=== PATIENT | female | born 1975 | race Caucasian/White ===

== ENCOUNTER 2022-02-10 18:27 | Emergency (ER) | payer OTHER ==
[~2022-02-10] VITALS: Ht 165.1 cm; Wt 102.1 kg
[~2022-02-10 18:27] MED LIST: ALBUTEROL SULF8.5 GM INH; ATIVAN1 MG PO; CEPHALEXIN500 MG PO; CYCLOBENZAPRINE10 MG PO; DEPO-PROVE400 MG/1 M IM; HYDROXYZINE HCL25 MG PO; KEFLEX500 MG PO; LIDOPIN28 GM TP; NORCO 5-325 TA1 EACH PO; PERCOCET 5-3251 EACH PO; TRAMADOL HCL50 MG PO; XANAX0.25 MG PO; ZOFRAN ODT4 MG PO; ZOFRAN4 MG PO
[2022-02-10] MEDS ORDERED: METFORMIN HCL500 M1 PO (19:47)
[2022-02-10] MEDS ORDERED: ATORVASTATIN CA20 MG PO (19:47)
[2022-02-10] MEDS ORDERED: PIOGLITAZONE HC45 MG PO (19:47)
[2022-02-10] MEDS ORDERED: MONTELUKAST SOD10 MG PO (19:48)
[2022-02-10] MEDS ORDERED: LISINOPRIL10 MG PO (19:48)
[2022-02-10] MEDS ORDERED: ULTRAM50 MG PO (21:22)
== END 2022-02-10 21:44 | disposition home or self-care (01) ==
LOC: ED 18:27
DX: S93.114A Dislocation of interphalangeal joint of right lesser toe(s), initial encounter (principal); W22.8XXA Striking against or struck by other objects, initial encounter; J45.909 Unspecified asthma, uncomplicated; E78.5 Hyperlipidemia, unspecified; I10 Essential (primary) hypertension; E11.9 Type 2 diabetes mellitus without complications; Z88.6 Allergy status to analgesic agent; Z79.899 Other long term (current) drug therapy; Z79.84 Long term (current) use of oral hypoglycemic drugs
CPT/HCPCS: 73630; 99283-25; A9270